=== PATIENT | male | born 1970 | race Caucasian/White ===

== ENCOUNTER 2025-02-14 09:48 | Outpatient (CLI) | payer BC, SELFPAY ==
[2025-02-14 10:23] LABS: Basophils % 0.2 % (0.1-2.0); Eosinophils # 0.1 K/mm3 (0.0-0.4); Eosinophils % 1.6 % (0.1-12.0); Hematocrit 49.9 % (42.0-52.0); Hemoglobin 16.6 g/dL (14.1-18.0); Lymphocytes # 1.2 K/mm3 (0.7-4.5); Lymphocytes % 26.9 % (10-50); Mean Corpuscular HGB Conc 33.3 g/dL (31.8-35.4); Mean Corpuscular Hemoglobin 30.7 pg (27.0-31.2); Mean Corpuscular Volume 92.4 fl (80-94); Mean Platelet Volume 9.6 fl (7.4-10.4); Monocytes # 0.5 K/mm3 (0.1-1.0); Monocytes % 11.1 % (1.7-9.3); Neutrophils # 2.7 K/mm3 (1.8-7.8); Platelet Count 292 K/mm3 (142-424); Red Cell Distribution Width 13.4 % (11.5-17.5); White Blood Count 4.4 K/mm3 (4.8-10.8)
[2025-02-14 10:44] LABS: Alanine Aminotransferase 85 U/L (12-78); Albumin Level 4.6 g/dl (3.5-5.0); Alkaline Phosphatase 56 U/L (38-126); Anion Gap 11.8 mEq/L (5-15); Aspartate Amino Transferase 67 U/L (17-59); Bilirubin,Direct 0.3 mg/dl (0.0-0.4); Bilirubin,Indirect 0.3 mg/dL (0.0-0.9); Bilirubin,Total 0.6 mg/dl (0.2-1.3); Bilirubin,Unconjugated 0.3 mg/dL (0.0-1.1); Blood Urea Nitrogen 15 mg/dl (9-20); Calcium 10.3 mg/dl (8.4-10.2); Carbon Dioxide 32 mmol/L (22.0-30.0); Chloride 102 mmol/L (98-107); Chol/HDL Ratio 2.5 (1-3.5); Cholesterol 266 mg/dl (140-200); Estimated Glomerular Filt Rate 78 ml/min (>60); GFR (African American) 95 ML/MIN (>60); Glucose 107 mg/dl (74-100); HDL Cholesterol 107 mg/dl (40-60); Potassium 4.8 mmoL/L (3.5-5.1); Sodium 141 mmol/L (136-145); Total Protein,Serum 7.9 g/dl (6.3-8.2); Triglycerides 313 mg/dl (30-150); VLDL Cholesterol 63 mg/dL (0-40)
[2025-02-14 10:51] LABS: Hemoglobin A1C 5.6 % (4.0-6.0)
[2025-02-14 10:59] LABS: Direct LDL Cholesterol 113.88 mg/dL (100-129)
[2025-02-14 11:01] LABS: Free T4 (Free Thyroxine) 0.85 ng/dl (0.78-2.19)
[2025-02-14 11:15] LABS: Thyroid Stimulating Hormone 2.12 uIU/mL (0.465-4.68)
== END 2025-02-14 23:59 | disposition home or self-care (01) ==
LOC: LAB 09:50
PROVIDERS: PCP Internal Medicine Cardiovascular Disease; Visit Provider Physician Assistant
DX: E11.9 Type 2 diabetes mellitus without complications (principal); R53.83 Other fatigue; R42 Dizziness and giddiness; R06.02 Shortness of breath; Z82.49 Family history of ischemic heart disease and other diseases of the circulatory system
CPT/HCPCS: 36415; 80048; 80061; 80076; 83036; 83735; 84439; 84443; 85025

== ENCOUNTER 2025-03-08 08:37 | Outpatient (CLI) | payer BC, SELFPAY ==
--- NOTE | 2025-03-08 | CA_ITS ---
APPROVED REPORT EXAM: Comprehensive 2D, Doppler, and color-flow Echocardiogram Workers Compensation Claims Supervisor: Yareli Borges, RCS, RVS Ht: 5 ft 10 in Wt: 231lbs BSA: 2.22 BP: 132/88 mmHg Indications: SOA, Abn EKG, Tachycardia, Palpitations 2D Dimensions IVSd 0.88 cm M: 0.6-1.2 LVEF (Visual) 46.30 % PWd 1.22 cm M: 0.6 - 1.2 LA Volume 83.70 mL LVDd 4.76 cm M: 4.2 - 5.9 LA Volume Index [id number] mL/m2 (M/F) 16-34 LVDs 3.66 cm M: 2.5 - 4.0 Left Atrium 3.56 cm M: 3.0 - 4.0 M-Mode Dimensions RVDd 2.93 cm (0.9-2.6) LA Diam 3.81 cm (1.9-4.0) LVDd 4.79 cm (3.5-5.7) LVDs 3.51 cm (3.5-5.7) IVSd 1.03 cm (0.6-1.1) PWd 1.06 cm (0.6-1.1) EF (Teich) 56.90% EPSs 0.84 cm FS 29.90% EDV (Teich) 118.80 mL TAPSE 2.13 (<1.7) ESV (Teich) 51.20 mL LV Diastology E Decel Time 240 (160-240 msec) E/A Ratio 0.84 MED A' 13.90 cm/s LAT A' 11.60 cm/s Aortic Valve GEOFFREY Index 1.16 cm2/m2 AoV Peak Sebastian. 124.0 (50-130 cm/s) AO Peak GR. 6.10 mmHg AO Mean GR. 3.80 (<5 mmHg) AO VTI 25.3 (18-25 cm) GEOFFREY (VTI) 2.64 (2.5-4.5 cm2) Mitral Valve MV A Velocity 106.0 (40-130 cm/s) E/A Ratio 0.84 MV Mean Gr. 2.20 (<2mmHg) Pulmonary Valve NV End VMAX 149.0 cm/s Left Ventricle The left ventricle is normal size. The left ventricular systolic function is normal. The left ventricular ejection fraction is within the normal range. There is increased LV wall thickness. There is normal LV segmental wall motion. The left ventricular diastolic function is normal. LVEF is 55%. Right Ventricle Right ventricle is mildly dilated. The right ventricular systolic function is normal. Atria The left atrium size is normal. The right atrium size is normal. There is no Doppler evidence of interatrial shunt. Aortic Valve Aortic valve is mildly thickened. There is no aortic valvular stenosis. No aortic regurgitation is present. Mitral Valve The mitral valve is normal in structure. No evidence of mitral valve stenosis. Mild mitral regurgitation. Tricuspid Valve Tricuspid valve is grossly normal in structure and function. Trace tricuspid regurgitation. There is insufficient TR jet to estimate RVSP. Pulmonic Valve The pulmonary valve is normal in structure. Trace pulmonic regurgitation. Great Vessels The aortic root is normal in size. IVC is normal in size and collapses >50% with inspiration. Pericardium There is no pericardial effusion. Other Information Study Quality: Fair Conclusion Normal biventricular systolic function Mild RV dilation. Mild MR. Electronically signed by : Neisha Graham MD 03/10/2025 14:30:18
--- NOTE | 2025-03-08 | CA_ITS ---
APPROVED REPORT Exam: Exercise Treadmill Technologist: Tamra Barragan Ht: 5 ft 10 in Wt: 231 lbs BSA: 2.22 m2 HR: 71 bpm BP: 155/97 mmHg Stress Test Details Test: Exercise stress testing was performed using a Bryon protocol. HR Resting HR: 71 bpm Max Heart Rate (APMHR): 167 bpm Max HR Achieved: 163 bpm Target HR (85% APMHR): 142 bpm % of APMHR: 98 Recovery HR: 94 bpm HR response to stress: Normal HR response to stress BP Resting BP: 155.0/97.0 mmHg Max BP: 206.0/114.0 mmHg Recovery BP: 167.0/108.0 mmHg BP response to stress: Abnormal hypertensive response to stress. ECG Resting ECG: Sinus rhythm Clinical Exercise duration: 6:00 min Exercise capacity: 7.1 METs Stress ECG Conclusion Symptoms: Dyspnea, fatigue Arrhythmias/Ectopy: PVCs ST-T Changes: 0.[address] depression Conclusion: Average exercise capacity. No significant ECG changes at peak stress. Hypertensive response to exercise. BP control is recommended. Myoview images are reported separately. Electronically signed by : Neisha Graham MD 03/08/2025 21:26:40
[2025-03-08] MEDS: ISOTOPE MYOVIEW (PER STUDY) 1 DOSE IV (11:03)
[2025-03-08] MEDS: SODIUM CHLORIDE 0.9% 10ML SYR (RAD ONLY) 10 ML IV ×2 (11:03)
--- NOTE | 2025-03-08 11:30 | NM_ITS ---
APPROVED REPORT Exam: Nuclear Stress Test Indication: SOB, Abnormal EKG, DM, High cholesterol, Family history Patient Location: Outpatient Stress Tech: Tamra Barragan PR Tech:Ashanti Serrano, ARRT, RT (R)(N) Ht: 5 ft 10 in Wt: 224 lbs HR: 68 bpm BP: 164/103 mmHg BSA: 2.19 m2 TID: 1.21 BMI: 32.1 History: SOB, Abnormal EKG, DM, High cholesterol, Family history Procedure: Patient exercised on Bryon protocol 5:59 minutes and sec, resting heart rate 68 bpm, resting blood pressure 164/103 mmHg, with exercise maximum heart rate achived was 163 bpm which is 97 % of the maximum predicted heart rate and blood pressure was 206/114 mmHg. Test was stopped due to SOB. Patient denied any complaint of chest pain. Patient has Average exercise capacity, achieved 7.1 METs of workload on treadmill, the blood pressure response to exercise was Hypertensive. Cardiac Stress and Resting SPECT Images: Cardiac Stress and Resting SPECT images were obtained using technetium 99m Myoview 32.7 mCi stress and 10.69 mCi at rest. Resting and stress imaging in supine and prone positions demonstrate a large sized, moderate, partially reversible perfusion defect in the basal lateral and anterolateral LV sheffield. There is increase in transient ischemic dilatation ratio (TID 1.21), suggestive of possible multivessel disease or balanced ischemia. Gated imaging demonstrates reduction in LV systolic function. There is mild hypokinesis of the basal lateral and the anterior LV sheffield. LVEF is calculated at 46%. Conclusion: Large sized, moderate, partially reversible perfusion defect in the basal lateral and anterolateral LV sheffield. Findings are suggestive of partial reversible ischemia. There is increase in transient ischemic dilatation ratio (TID 1.21), suggestive of possible multivessel disease or balanced ischemia. Gated imaging demonstrates reduction in LV systolic function. There is mild hypokinesis of the basal lateral and the anterior LV sheffield. LVEF is calculated at 46%. Electronically signed by : Neisha Graham MD 03/08/2025 21:22:17
== END 2025-03-08 23:59 | disposition home or self-care (01) ==
LOC: RT 08:38
PROVIDERS: PCP Internal Medicine Cardiovascular Disease; Visit Provider Physician Assistant
DX: R94.31 Abnormal electrocardiogram [ECG] [EKG] (principal); R53.83 Other fatigue; R42 Dizziness and giddiness; R00.0 Tachycardia, unspecified
CPT/HCPCS: 78452; 93017; 93018; 93306; A9502

== ENCOUNTER 2025-03-18 08:35 | Day surgery (SDC) | payer BC, SELFPAY ==
[2025-03-18] VITALS (11 sets, daily range): BP systolic 121–160; BP diastolic 70–114; PULSE 85–100; RESP 18–20; TEMP 36.9; O2SAT 91–99; BMI 32.8
--- NOTE | 2025-03-18 07:14 | IR_ITS ---
APPROVED REPORT Patient Location: Outpatient PROCEDURES Left heart catheterization Left ventriculogram Selective coronary angiogram INDICATION Abnormal Myoview, Angina pectoris Informed consent was obtained prior to the procedure. COMPLICATIONS NONE Estimated Blood Loss: LESS THAN 10 ML TECHNIQUE One percent lidocaine used to anesthetize the right anterior aspect of the wrist. The right radial artery was accessed via the Seldinger technique. A 6 Kinyarwanda sheath was placed in the right radial artery. 2.5 mg of Verapamil, 800 mcg of nitroglycerin, 1mg Lidocaine and 5000 U Heparin were given through the arterial sheath. The 6 Kinyarwanda JL 3 catheter was also used to perform left heart catheterization, left ventriculogram and selective coronary angiogram. At the end of the procedure the sheath was removed good hemostasis was achieved using Traclet band, patient was transferred to the postop holding area in stable condition. ANGIOGRAPHIC RESULTS The left main artery Normal The left anterior descending artery Normal The circumflex artery Dominant massively large and normal The right coronary artery Vestigial normal The GRIFFIN ventriculogram reveals Normal 65% The left ventricular end-diastolic pressure 10 mmHg IMPRESSION Normal coronary arteries Normal ejection fraction Normal EDP PLAN 1. Medical management for noncardiac related symptoms 2. Beta-blockers may benefit patient 3. Recommend alcohol cessation Electronically signed by : Jonas Parra MD 03/18/2025 11:25:07
[2025-03-18 09:05] LABS: Basophils % 0.2 % (0.1-2.0); Eosinophils # 0.1 Kmm3 (0.0-0.4); Eosinophils % 1.1 % (0.1-12.0); Hemoglobin 15.4 g/dL (14.1-18.0); Immature Granulocytes # 0.01 10^3uL; Immature Granulocytes % 0.2 %; Lymphocytes # 1.2 K/mm3 (0.7-4.5); Lymphocytes % 26.9 % (10-50); Mean Corpuscular HGB Conc 33.5 g/dL (31.8-35.4); Mean Corpuscular Hemoglobin 30.9 pg (27.0-31.2); Mean Corpuscular Volume 92.4 fl (80-94); Mean Platelet Volume 9.5 fl (7.4-10.4); Monocytes # 0.5 K/mm3 (0.1-1.0); Neutrophils # 2.8 K/mm3 (1.8-7.8); Neutrophils % 61.6 % (37.0-80.0); Nucleated Red Blood Cells # 0 10^3/uL; Nucleated Red Blood Cells % 0 %; Platelet Count 285 K/mm3 (142-424); Red Blood Count 4.98 M/mm3 (4.60-6.20); Red Cell Distribution Width 13.2 % (11.5-17.5); Red Cell Distribution Width-SD 44.6 fL; White Blood Count 4.6 K/mm3 (4.8-10.8)
[2025-03-18 10:12] LABS: Anion Gap 11.6 mEq/L (5-15); Blood Urea Nitrogen 19 mg/dl (9-20); Calcium 9.4 mg/dl (8.4-10.2); Carbon Dioxide 23 mmol/L (22.0-30.0); Chloride 109 mmol/L (98-107); Creatinine Clearance Estimated 139 mL/min (50-200); Estimated Glomerular Filt Rate 88 ml/min (>60); GFR (African American) 107 ML/MIN (>60); Glucose 111 mg/dl (74-100); Potassium 5.6 mmoL/L (3.5-5.1); Sodium 138 mmol/L (136-145)
[2025-03-18] MEDS: LIDOCAINE 1% 10ML MDV 10 ML IJ (10:50)
[2025-03-18] MEDS: HEPARIN 1,000 UNITS/500ML NS (CATH LAB) 3000 UNIT IV (10:50)
[2025-03-18] MEDS: 0.9 % SODIUM CHLORIDE 500 ML 25 ML IV (10:51)
[2025-03-18] MEDS: diphenhydrAMINE 50MG/ML VIAL 50 MG IV (10:53)
[2025-03-18] MEDS: NITROGLYCERIN 800MCG/8ML SYR (CATH LAB) 800 MCG IA (10:53)
[2025-03-18] MEDS: VERAPAMIL 2.5MG/ML 2ML VIAL 2.5 MG IV (10:53)
[2025-03-18] MEDS: MIDAZOLAM HCL 1MG/ML 5ML VIAL 1 MG IV (11:25)
[2025-03-18] MEDS: PROPOFOL 10MG/ML 20ML VIAL 40 MG IV (11:25)
[2025-03-18] MEDS: FENTANYL 100MCG/2ML VIAL 50 MCG IV (11:25)
[2025-03-18] MEDS: IOPAMIDOL-370 (76%);100ML BOTTLE 50 ML IV (12:57)
== END 2025-03-18 13:31 | disposition home or self-care (01) ==
LOC: CATHLAB 08:36
PROVIDERS: PCP Internal Medicine Cardiovascular Disease; Visit Provider Internal Medicine
PROC: 4A023N7 Measurement of Cardiac Sampling and Pressure, Left Heart, Percutaneous Approach (ICD-10-PCS; CPT 93452; principal; 2025-03-18 10:00)
DX: I20.9 Angina pectoris, unspecified (principal); R93.1 Abnormal findings on diagnostic imaging of heart and coronary circulation; R06.02 Shortness of breath; R94.31 Abnormal electrocardiogram [ECG] [EKG]; E11.9 Type 2 diabetes mellitus without complications; Z82.49 Family history of ischemic heart disease and other diseases of the circulatory system; Z79.85 Long-term (current) use of injectable non-insulin antidiabetic drugs; Z79.899 Other long term (current) drug therapy; F10.90 Alcohol use, unspecified, uncomplicated; F17.290 Nicotine dependence, other tobacco product, uncomplicated
CPT/HCPCS: 80048; 85025; 93458; 99152; C1725; C1769; J1200; J1644; J3010; Q9967

== ENCOUNTER 2025-03-30 11:52 | Outpatient (CLI) | payer BC, SELFPAY ==
[2025-03-30 13:32] LABS: Anion Gap 8.8 mEq/L (5-15); Blood Urea Nitrogen 20 mg/dl (9-20); Calcium 9.8 mg/dl (8.4-10.2); Carbon Dioxide 27 mmol/L (22.0-30.0); Chloride 102 mmol/L (98-107); Estimated Glomerular Filt Rate 78 ml/min (>60); GFR (African American) 95 ML/MIN (>60); Glucose 103 mg/dl (74-100); Magnesium 2.2 mg/dl (1.6-2.3); Potassium 4.8 mmoL/L (3.5-5.1); Sodium 133 mmol/L (136-145)
== END 2025-03-30 23:59 | disposition home or self-care (01) ==
LOC: LAB 11:53
PROVIDERS: PCP Family Medicine; Visit Provider Nurse Practitioner
DX: R42 Dizziness and giddiness (principal); I10 Essential (primary) hypertension; R53.83 Other fatigue; R00.2 Palpitations; R06.02 Shortness of breath
CPT/HCPCS: 36415; 80048; 83735